=== PATIENT | female | born 2000 | race African-American/Black ===

== ENCOUNTER 2021-11-03 13:55 | Emergency (ER) | payer OTHER, SELFPAY ==
--- OUTSIDE RECORDS SUMMARY | 2021-11-03 13:59 | XMS REPORT | Continuity of Care Document ---
:2000 Author Organization [facility] t Address [address] [place] [address] Care Team Providers Name Role Phone Benny FREGOSO Primary Care Physician Unavailable Benny FREGOSO Attending Clinician Unavailable Visit, Nurse Attending Clinician Unavailable Stacey ETHYLENE PLANT OPERATOR, R Attending Clinician JENNY, C Attending Clinician Unavailable Akingrzegorz NDIAYECNP, C Attending Clinician Damaris WRIGHT Attending Clinician Unavailable Kyle ETHYLENE PLANT OPERATOR, N Attending Clinician Payers Payer Name Policy Type Policy Number Effective Date Expiration Date Cole bahena [id number] 2018 00:00:00 Advance Directives Directive Decision Effective Termination Comments Source Date Date Healthcare Agents on N/A [facility] FileNameRelationshipHealthcare [facility] Agent Medical RelationshipCommunicationGwendcommunity regional medical centern Branch 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 6-23 ity of 00:00: [place] [address] Medical Branch Chlamydia Chlamydia Disease Active 2018-08 Uni vers 2-16 ity of 00:00: [address] Screening Screening Disease Active Uni vers examinatio examinatio 9-25 it y of n for n for 00:00: [place] venereal venereal 00 Medica l disease disease Branch [place] Disease Active Univers contracept contracept 9-25 it y of ion ion 00:00: [address] Allergies, Adverse Reactions, Alerts Allergy Allergy Status Severity Reaction(s) Onset Inactive Treating Comm ents Source Name Type Date Date Clinician NO KNOWN Drug Active Univers ALLERGIE Class ity of S [facility] Social History Social Habit Start Date Stop Date Quantity Comments Source Exposure to Not sure [facility] SARS-CoV-2 [facility] (event) Branch Alcohol intake 2021-06-23 2021-06-[address] [facility] 00:00:00 00:00:00 non-drinker of [facility] alcohol Branch (finding) Tobacco use and 2018-03-24 2018-03-24 Never used Universit y of exposure 00:00:00 00:00:00 [facility] Sex Assigned At [birth year] Universit y of 00:00:00 00:00:00 [facility] Smoking Status Start Date Stop Date Source Never smoker [facility] Branch Medications Ordered Filled Start Stop Current Ordering Indication Dosage Frequency Signature Comments Components Source Medication Medication Date Date Medication? Clinician (SIG) Name Name ID NOW Yes 10mg Take 10 mg Unive rs COVID-19 6-18 by mouth. ity of TEST KIT 00:00: [place] Kit 00 Medical Branch ID NOW Yes 10mg Take 10 mg Unive rs COVID-19 6-18 by mouth. ity of TEST KIT 00:00: [place] Kit Medical Branch ID NOW Yes 10mg Take 10 mg Unive rs COVID-19 6-18 by mouth. ity of TEST KIT 00:00: [place] Kit Medical Branch ID NOW Yes 10mg Take 10 mg Unive rs COVID-19 6-18 by mouth. ity of TEST KIT 00:00: [place] Kit 00 Medical Branch metroNIDAZO Yes [id number] 500mg Take 1 Univers LE 500 mg 3-05 tablet by ity o f tablet 00:00: mouth 2 [place] (two) Medical times Branch daily. metroNIDAZO Yes [id number] 500mg Take 1 Univers LE 500 mg 3-05 tablet by ity o f tablet 00:00: mouth 2 [place] (two) Medical times [place] daily. metroNIDAZO Yes [id number] 500mg Take 1 Univers LE 500 mg 3-05 tablet by ity o f tablet 00:00: mouth 2 [place] (two) Medical times Branch daily. metroNIDAZO Yes [id number] 500mg Take 1 Univers LE 500 mg 3-05 tablet by ity o f tablet 00:00: mouth 2 [place] (two) Medical times Branch daily. medroxyPROG 2017- Yes [id number] 150mg Univers ESTERone 8-17 ity of (DEPO-PROVE 05:00: [place] RA) 00 Medical injection Branch 150 mg medroxyPROG 2017- Yes [id number] 150mg 150 mg, Univers ESTERone 8-17 Intramuscu ity o f (DEPO-PROVE 05:00: [place], [place] RA) 00 [id number], Medical injection First dose Bran ch 150 mg on Tue03/31/18 at 0000, Until Discontinu ed, Routine medroxyPROG Yes [id number] 150mg Univers ESTERone 8-17 ity of (DEPO-PROVE 05:00: [place] RA) 00 Medical injection Branch 150 mg medroxyPROG 2017- Yes [id number] 150mg Univers ESTERone 8-17 ity of (DEPO-PROVE 05:00: [place] RA) 00 Medical injection Branch 150 mg medroxyPROG 2017- Yes [id number] 150mg Univers ESTERone 8-17 ity of (DEPO-PROVE 05:00: [place] RA) 00 Medical injection Branch 150 mg medroxyPROG 2017- Yes [id number] 150mg 150 mg, Univers ESTERone 8-17 Intramuscu ity o f (DEPO-PROVE 05:00: [facility], [place] RA) 00 [id number], Medical injection First dose Bran ch 150 mg on Tue03/31/18 at 0000, Until Discontinu ed, Routine Immunizations Ordered Filled Immunization Date Status Comments [facility] e Immunization Name Name Influenza Virus 2020-07-04 Completed Universit y of Vaccine Quad .5 mL 00:00:00 [facility] 6+ MO Branch HPV9 2020-07-[address] [facility] 00:00:00 [facility] Influenza Virus 2020-07-04 Completed Universit y of Vaccine Quad .5 mL 00:00:00 [facility] 6+ MO Branch HPV9 2020-07-04 Completed University of 00:00:00 [facility] Influenza Virus 2020-07-04 Completed Universit y of Vaccine Quad .5 mL 00:00:00 [facility] IM 6+ MO Branch HPV9 2020-07-04 Completed University 00:00:00 [facility] Influenza Virus 2020-07-04 Completed Universit y of Vaccine Quad .5 mL 00:00:00 [facility] IM 6+ MO Branch HPV9 2020-07-04 Completed University 00:00:00 [facility] Vital Signs Vital Name Observation Time Observation Value Comments Source Systolic blood 2021-10-07 19:52:00 137 mm[Hg] Univer sity of pressure [facility] Diastolic blood 2021-10-07 19:52:00 83 mm[Hg] Unive rsity of pressure [facility] Heart rate 2021-10-07 19:52:00 71 /min Universi ty of [facility] Body temperature 2021-10-07 19:52:00 36.11 Karla Univ ersity of [facility] Respiratory rate 2021-10-07 19:52:00 20 /min Univ ersity of [facility] Body height 2021-10-07 19:52:00 149.9 cm Universi ty of [facility] Body weight 2021-10-07 19:52:00 69.491 kg Universi ty of [facility] BMI 2021-10-07 19:52:00 30.94 kg/m2 Universi ty of [facility] Systolic blood 2021-06-23 21:30:00 131 mm[Hg] Univer sity of pressure [facility] Diastolic blood 2021-06-23 21:30:00 79 mm[Hg] Unive rsity of [facility] Heart rate 2021-06-23 21:30:00 77 /min Universi ty of [facility] Body temperature 2021-06-23 21:30:00 35.89 Karla Univ ersity of [facility] Respiratory rate 2021-06-23 21:30:00 18 /min Univ ersity of [facility] Body weight 2021-06-23 21:30:00 67.223 kg Universi ty of [facility] BMI 2021-06-23 21:30:00 29.93 kg/m2 Universi ty [facility] Procedures Procedure Date / Time Performed Performing Clinician Sour e POCT TEST 2021-10-07 00:00:00 Main Fregoso rsity [facility] Encounters Start End Encounter Admission Attending Care Care Encounter Source Date/Time Date/Time Type Type Clinicians Facility Department ID 2021-10-21 2021-10-21 Outpatient Benny FREGOSO [facility] [id number] Univers 10:45:00 10:45:00 MAIN [id number] ity o [facility] 2021-10-21 2021-10-21 Outpatient Benny FREGOSO [facility] [id number] Univers 10:45:00 10:45:00 MAIN ity o [facility] 2021-10-07 2021-10-07 Outpatient Benny FREGOSO [facility] [id number] Univers 13:30:00 14:11:34 MAIN itchandrika o [facility] 2021-10-07 2021-10-07 Nurse Visit, [facility] Nurse [facility] [id number] Univers 13:30:00 14:11:34 Visit Main Fregoso RESIDENT CARE ASSISTANT [id number] [id number] Terry as MATERNAL [phone] Med ical & CHILD [address] [place] [address] 2021-10-07 2021-10-07 Outpatient R [facility] [id number] Univers 13:30:00 13:30:00 [id number] ity [facility] 2021-10-07 2021-10-07 Outpatient Benny FREGOSO [facility] [id number] Univers 10:30:00 10:30:00 SHAVONA ity o [facility] 2021-10-05 2021-10-05 Outpatient Benny FREGOSO [facility] [id number] Univers 15:15:00 15:15:00 MAIN [id number] ity o [facility] 2021-10-05 2021-10-05 Outpatient Benny FREGOSO [facility] [id number] Univers 15:15:00 15:15:00 MAIN mitchelly o [facility] 2021-09-30 2021-09-30 [facility] [id number] Univers 00:00:00 00:00:00 Jeannieravi R RESIDENT CARE ASSISTANT [id number] [facility] [id number] Terry as MATERNAL [phone] [facility] & [address] 2021-09-25 2021-09-25 Outpatient R AKINSIPE, [facility] [id number] Univers 15:45:00 15:45:00 IDA [id number] ity o [facility] 2021-09-25 2021-09-25 Outpatient R AKINSIPE, [facility] [id number] Univers 15:45:00 15:45:00 IDA ity o [facility] 2021-09-22 2021-09-22 Outpatient R AKINSIERIKA, [facility] [id number] Univers 09:00:00 09:00:00 IDA [id number] ity o [facility] 2021-09-22 2021-09-22 Outpatient R JENNY, [facility] [id number] Univers 09:00:00 09:00:00 IDA y o [facility] 2021-09-21 2021-09-21 Telephone [facility] [id number] Univers 00:00:00 00:00:00 Ida Cordero RESIDENT CARE ASSISTANT [id number] [facility] [id number] Terry as MATERNAL [phone] [facility] & [address] 2021-09-15 2021-09-15 Outpatient R STACEY [facility] [id number] Univers 15:15:00 15:15:00 MAIN [id number] ity o [facility] 2021-09-15 2021-09-15 [facility] [id number] Univers 15:15:00 15:15:00 SHAVONA ity o [facility] 2021-07-07 2021-07-07 Outpatient Benny WRIGHT [facility] [id number] Univers 15:30:00 15:30:00 [facility]LLA [id number] [facility] 2021-07-07 2021-07-07 [facility] [id number] Univers 15:30:00 15:30:00 ISABELLA bains [facility] 2021-07-06 2021-07-06 Outpatient R FAYEERIKA [facility] [id number] Univers 09:00:00 09:00:00 IDA [id number] ity o f [facility] 2021-06-23 2021-06-23 Nurse Visit, Ang-Rm[facility] Nurse [facility] [id number] Univers 15:22:02 15:38:14 Visit Kyle Isabella Damaris RESIDENT CARE ASSISTANT [id number] [facility] [id number] Terry as MATERNAL [id number] [facility] ical & CHILD [address] [place] [address] 2021-06-23 2021-06-23 Outpatient R [facility] [id number] Univers 15:30:00 15:30:00 [id number] ity [facility] 2021-06-23 2021-06-23 [facility] [id number] Univers 15:30:00 15:30:00 ISABELLA bains [facility] 2021-03-31 2021-03-31 Outpatient R [facility] [id number] Univers 15:30:00 15:30:00 [id number] [facility] 2021-03-31 2021-03-31 Outpatient R [facility] [id number] Univers 15:30:00 15:30:00 ity [facility] 2021-03-27 2021-03-27 Outpatient [facility] [id number] Univers 08:00:00 08:00:00 [id number] ity [facility] 2021-03-27 2021-03-27 Outpatient R [facility] [id number] Univers 08:00:00 08:00:00 ity [facility] 2021-02-09 2021-02-09 Outpatient R [facility] [id number] Univers 08:30:00 08:30:00 [id number] ity [facility] 2021-02-04 2021-02-04 Outpatient R STACEY [facility] [id number] Univers 07:45:00 07:45:00 ROSHUNDA [id number] ity o f [facility] 2021-02-04 2021-02-04 Outpatient R STACEY [facility] [id number] Univers 07:45:00 07:45:00 ROSAMORNDA ity o f [facility] 2021-02-04 2021-02-04 Outpatient R STACEY [facility] [id number] Univers 07:45:00 07:45:00 ROSAMORNDA ity o f [facility] 2021-02-02 2021-02-02 Outpatient R [facility] [id number] Univers 13:15:00 13:15:00 [id number] ity [facility] 2021-02-02 2021-02-02 Outpatient R STACEY [facility] [id number] Univers 10:30:00 10:30:00 THORNDA ity o f [facility] 2021-01-23 2021-01-23 Outpatient [facility] [id number] Univers 08:30:00 08:30:00 [id number] ity [facility] 2021-01-23 2021-01-23 Outpatient R [facility] [id number] Univers 08:30:00 08:30:00 ity [facility] 2021-01-02 2021-01-02 Outpatient R [facility] [id number] Univers 09:00:00 09:00:00 ity [facility] 2021-01-02 2021-01-02 Outpatient R STACEY [facility] [id number] Univers 09:00:00 09:00:00 ROSAMORNDA ity o f [facility] 2021-01-02 2021-01-02 Outpatient R [facility] [id number] Univers 09:00:00 09:00:00 [id number] ity [facility] 2020-10-24 2020-10-24 Outpatient R [facility] [id number] Univers 09:30:00 09:30:00 [id number] ity [facility] 2020-10-23 2020-10-23 Outpatient R [facility] [id number] Univers 13:30:00 13:30:00 [id number] [facility] 2020-10-23 2020-10-23 Outpatient R STACEY [facility] [id number] Univers 13:30:00 13:30:00 ROSAMORNDA ity o f [facility] 2020-10-17 2020-10-17 Outpatient R [facility] [id number] Univers 10:30:00 10:30:00 [id number] [facility] 2020-10-17 2020-10-17 Outpatient R AKINSIPE, [facility] [id number] Univers 10:30:00 10:30:00 IDA ity o f [facility] 2020-10-06 2020-10-06 Outpatient R AKINSIPE, [facility] [id number] Univers 15:30:00 15:30:00 IDA ity o f [facility] 2020-10-06 2020-10-06 Outpatient R STACEY [facility] [id number] Univers 14:00:00 14:00:00 THORNDA ity o f [facility] 2020-10-06 2020-10-06 Outpatient R [facility] [id number] Univers 09:30:00 09:30:00 [id number] [facility] 2020-10-06 2020-10-06 Outpatient R STACEY [facility] [id number] Univers 09:30:00 09:30:00 THORNDA ity o f [facility] 2020-07-04 2020-07-04 Outpatient R AKINSIPE, [facility] [id number] Univers 10:30:00 10:30:00 IDA ity o f [facility] 2020-07-04 2020-07-04 Outpatient R [facility] [id number] Univers 10:00:00 10:00:00 y [facility] 2020-07-04 2020-07-04 Outpatient R AKINSIPE, [facility] [id number] Univers 08:45:00 08:45:00 IDA ity o f [facility] 2020-04-14 2020-04-14 Outpatient R [facility] [id number] Univers 15:30:00 15:30:00 [id number] ity [facility] 2020-04-14 2020-04-14 Outpatient R [facility] [id number] Univers 15:30:00 15:30:00 ity of [facility] 2020-04-11 2020-04-11 Outpatient R [facility] [id number] Univers 10:30:00 10:30:00 [id number] ity of [facility] 2020-04-11 2020-04-11 Outpatient R STACEY [facility] [id number] Univers 10:30:00 10:30:00 ROSNDA ity o f [facility] 2020-04-04 2020-04-04 Outpatient R [facility] [id number] Univers 14:00:00 14:00:00 [id number] ity [facility] 2020-04-04 2020-04-04 Outpatient R [facility] [id number] Univers 14:00:00 14:00:00 ity [facility] 2020-01-11 2020-01-11 Outpatient R STACEY [facility] [id number] Univers 14:30:00 14:30:00 SHAVONA ity o f [facility] 2020-01-11 2020-01-11 Outpatient R [facility] [id number] Univers 10:30:00 10:30:00 [id number] ity [facility] 2020-01-11 2020-01-11 Outpatient R [facility] [id number] Univers 10:30:00 10:30:00 ity of [facility] 2019-10-19 2019-10-19 Outpatient R [facility] [id number] Univers 13:30:00 13:30:00 ity [facility] 2019-10-19 2019-10-19 Outpatient R AKINSIERIKA [facility] [id number] Univers 13:30:00 13:30:00 IDA ity o f [facility] Results Test Description Test Time Test Comments Results Result Comments Source POCT TEST 2021-10-07 19:55:00 Test Item Value Reference Range Interpretation Comme nts POCT PREG (test code = 1605) Negative On board controls acceptable with C Line (test code = 3574) Yes POCT PREG LOT # (test code = 3575) POCT PREG TEST DATE (test code = 3576) [facility]
--- NOTE | 2021-11-03 14:58 | RAD REPORT ---
EXAM DESCRIPTION: USExtremity Venous Uni Ltd11/03/2021 2:48 pm CLINICAL HISTORY: left leg pain COMPARISON: None. FINDINGS: Left common femoral, superficial femoral, popliteal and posterior tibial veins are compre ssible and demonstrate augmentation. Doppler demonstrates good flow. Grayscale, color and spectral analysis performed on all vessels IMPRESSION: No evidence of deep venous thrombosis involving the left lower extremity.
--- NOTE | 2021-11-03 15:37 | ER ---
Nurse's Notes [facility] Name: Radha Champion Age: 21 yrs Sex: Female : 2000 Arrival Date: 11/03/2021 Time: 13:57 Bed 11 Private MD: Diagnosis: Pain in left leg Presentation: 11/03 14:05 Chief complaint: Patient states: pt presented to ED reporting left leg pain x3 weeks. morocho pt denied trauma or any injuries. Coronavirus screen: Vaccine status: Patient reports receiving the 2nd dose of the covid vaccine. Ebola Screen: Patient denies travel to an Ebola-affected area in the 21 days before illness onset. Initial Sepsis Screen: Does the patient meet any 2 criteria? No. Patient's initial sepsis screen is negative. Does the patient have a suspected source of infection? No. Patient's initial sepsis screen is negative. Risk Assessment: Do you want to hurt yourself or someone else? Patient reports no desire to harm self or others. Onset of symptoms was October 13, 2021. 14:05 Method Of Arrival: Ambulatory morocho 14:05 Acuity: MUSA 4 morocho Triage Assessment: 14:07 General: Appears in no apparent distress. Behavior is calm, cooperative. Pain: morocho Complains of pain in left leg. 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 - Social history:: Smoking status: Patient denies any tobacco usage or history of. Screenin:24 Abuse screen: Denies threats or abuse. Denies injuries from another. Nutritional morocho screening: No deficits noted. Tuberculosis screening: No symptoms or risk factors identified. Fall Risk None identified. Assessment: 14:24 General: Appears in no apparent distress. Behavior is calm, cooperative. morocho Musculoskeletal: Reports pain in left leg Pain is 8 out of 10 on a pain scale. Vital Signs: 14:05 BP 119 / 72; Pulse 89; Resp 18; Temp 97.1(T); Pulse Ox 100% ; Weight 66.22 kg; Height 4 morocho ft. 11 in. (149.86 cm); 14:05 Body Mass Index 29.49 (66.22 kg, 149.86 cm) morocho ED Course: 13:57 Patient arrived in ED. kz 14:07 Triage completed. morocho 14:07 Arm band placed on. morocho 14:10 Angelo Sofia PA is PHCP. stefany 14:10 Andrew Gomes MD is Attending Physician. stefany 14:23 Khushboo Rios, RN is Primary Nurse. morocho 14:24 Patient has correct armband on for positive identification. morocho 14:24 No provider procedures requiring assistance completed. morocho 14:48 US Extremity Venous Unilateral Ltd In Process Unspecified. EDMS Administered Medications: No medications were administered Outcome: 15:37 Discharge ordered by . [facility] 16:22 Patient left the ED. iw Signatures: Dispatcher [employer] EDMS Angelo Sofia PA PA jmm Williams, Irene, RN RN Khushboo Rios RN RN ha Zapata, Kelly jacky
--- NOTE | 2021-11-03 15:38 | EDPHYS ---
Physician Documentation [facility] Name: Radha Champion Age: 21 yrs Sex: Female : 2000 Arrival Date: 11/03/2021 Time: 13:57 Bed 11 Private MD: ED Physician Andrew Gomes HPI: 11/03 14:16 This 21 yrs old Black Female presents to ER via Ambulatory with complaints of Leg Pain jmm - Left. 14:16 The patient presents with pain, that is acute. Onset: The symptoms/episode jmm began/occurred gradually, 1 week(s) ago. Modifying factors: The symptoms are alleviated by nothing. the symptoms are aggravated by nothing. Associated signs and symptoms: Pertinent positives: swelling. Is a 21-year-old female with no [place] conditions presents emerged department with complaints of left thigh and groin pain beginning approximately 2 weeks ago worsening over the past week. Pain is worse when she stands for long periods of time. Denies chest pain or shortness of breath. Denies known injury. Patient does state that she does have regular mile runs.. 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 - Social history:: Smoking status: Patient denies any tobacco usage or history of. ROS: 14:16 Constitutional: Negative for fever, chills, and weight loss, Cardiovascular: Negative jmm for chest pain, palpitations, and edema, Respiratory: Negative for shortness of breath, cough, wheezing, and pleuritic chest pain. 14:16 MS/extremity: Positive for pain, swelling. 14:16 All other systems are negative. Exam: 14:16 Constitutional: This is a well developed, well nourished patient who is awake, alert, jmm and in no acute distress. Head/Face: atraumatic. Eyes: EOMI, no conjunctival erythema appreciated ENT: Moist Mucus Membranes Neck: Trachea midline, Supple Chest/axilla: Normal chest wall appearance and motion. Cardiovascular: Regular rate and rhythm. No edema appreciated Respiratory: Normal respirations, no respiratory distress appreciated Abdomen/GI: Non distended, soft Back: Normal ROM Skin: General appearance color normal MS/ Extremity: Moves all extremities, no obvious deformities appreciated, no edema noted to the lower extremities Neuro: Awake and alert Psych: Behavior is normal, Mood is normal, Patient is cooperative and pleasant Vital Signs: 14:05 BP 119 / 72; Pulse 89; Resp 18; Temp 97.1(T); Pulse Ox 100% ; Weight 66.22 kg; Height 4 morocho ft. 11 in. (149.86 cm); 14:05 Body Mass Index 29.49 (66.22 kg, 149.86 cm) morocho MDM: 14:16 Patient medically screened. [facility] 15:36 Data reviewed: vital signs, nurses notes. Counseling: I had a detailed discussion with [facility] the patient and/or guardian regarding: the historical points, exam findings, and any diagnostic results supporting the discharge/admit diagnosis, radiology results, the need for outpatient follow up, to return to the emergency department if symptoms worsen or persist or if there are any questions or concerns that arise at home. 11/03 14:16 Order name: US Extremity Venous Unilateral Ltd; Complete Time: 15:00 [facility] Administered Medications: No medications were administered Disposition: 18:35 Co-signature as Attending Physician, Andrew Gomes MD. rn Disposition Summary: 11/03/21 15:37 Discharge Ordered Location: Home [facility] Condition: Stable [facility] Diagnosis - Pain in left leg [facility] Followup: [facility] - With: Private Physician - When: 2 - 3 days - Reason: Recheck today's complaints, Continuance of care, Re-evaluation by your physician Discharge Instructions: - Discharge Summary Sheet [facility] - Musculoskeletal Pain [facility] Forms: - Medication Reconciliation Form [facility] - Thank You Letter [facility] - Antibiotic Education [facility] - Prescription Opioid Use [facility] - Work release form iw Prescriptions: - Diclofenac Sodium 75 mg Oral Tablet Sustained Release - take 1 tablet by ORAL route 2 times per day; 30 tablet; Refills: 0, Product [facility] Selection Permitted - orphenadrine citrate 100 mg Oral Tablet Sustained Release - take 1 tablet by ORAL route 2 times per day As needed; 20 tablet; Refills: 0, [facility] Product Selection Permitted Signatures: Dispatcher [employer] EDAngelo Hayes PA PA jmm Nieto, Roman, MD MD rn Au-StagerKhushboo, DANNA RN mor[place]o
[2021-11-03 16:57] VITALS: BP 119/72; TEMP 97.1; O2SAT 100
== END 2021-11-03 16:22 | disposition home or self-care (01) ==
LOC: ER 13:55
DX: M79.605 Pain in left leg (principal)
CPT/HCPCS: 93971; 99282